=== PATIENT | female | born 1950 | race African-American/Black ===

== ENCOUNTER → 2017-02-01 | Outpatient (CLI) | payer MEDICARE, BC ==
--- NOTE | 2017-02-03 12:19 | WOMENS IMAGING REPORT ---
EXAM DESCRIPTION: 3D SCREENING MAMMO BILAT COMPLETED DATE/TIME: 02/01/2017 12:47 pm REASON FOR STUDY: ROUTINE SCREENING; Z12.31 Z12.31 ENCNTR SCREEN MAMMOGRAM FOR MALIGNANT NEOPLASM O F JERILYN COMPARISON: Multiple since 2014 TECHNIQUE: Standard craniocaudal and mediolateral oblique views of each breast recorded using digita l acquisition and breast tomosynthesis. LIMITATIONS: None. FINDINGS: No masses, calcifications or architectural distortion. No areas of suspicion. Read with the assistance of CAD. .[facility] - R2 Cenova Version 1.3 .[facility] - R2 Cenova Version 1.3 .[facility] - R2 Cenova Version 2.4 .[facility] [place] - R2 Cenova Version 2.4 .[facility] - R2 Spiral Winder Version 9.2 IMPRESSION: NORMAL MAMMOGRAM. BIRADS 1. BREAST DENSITY: b. There are scattered areas of fibroglandular density. BIRAD: 1 NEGATIVE RECOMMENDATION: ROUTINE SCREENING Please continue yearly bilateral screening tomosynthesis in January 2018 COMMENT: The patient has been notified of the results by letter per [place] requirements. Additional no tification policies are in place for contacting patient with suspicious or incomplete findings. Quality ID #[id number]: The [employer] recommends an annual screening mammogram for women aged 40 years or over. This facility utilizes a reminder system to ensure that all patients receive reminder letters, and/or direct phone calls for appointments. This includes reminders for routine scr eening mammograms, diagnostic mammograms, or other Breast Imaging Interventions when appropriate. Th is patient will be placed in the appropriate reminder system. The [employer] (A[employer]) has developed recommendations for screening MRI of the breast s in certain patient populations, to be used in conjunction with mammography. Breast MRI surveillanc e may be appropriate for women with more than 20% lifetime risk of developing breast cancer as deter mined by genetic testing, significant family history of the disease, or history of mantle radiation f or Hodgkins Disease. ACR Practice Guidelines 2008. DBT Technology DBT is a type of tomographic mammography. With conventional mammography, overlapping breast tissue ma y make lesions difficult to detect, even with good compression. DBT uses an x-ray tube that rotates a round the breast, taking images at different angles. These images are then combined to create thin sl ices of the breast that the radiologist can view as a 3D reconstruction. The [employer] unit can perform full-field digital mammograms (2D imaging); or DBT (3D imaging); or both, in a combination mode that quickly performs both the mammogram and the tomosynthesis scan while the breast is still compressed. PQRS 6045F: Fluoroscopic imaging is not utilized for breast tomosynthesis. TECHNICAL DOCUMENTATION: FINDING NUMBER: (1) ASSESSMENT: (1) JOB ID: [id number] [employer]- All Rights Reserved
== END ==
LOC: WI 11:52
PROVIDERS: ATTEND Specialist
DX: Z12.31 Encounter for screening mammogram for malignant neoplasm of breast (principal)
CPT/HCPCS: 77063; G0202; 77067

== ENCOUNTER 2019-07-08 16:19 | Emergency (ER) | payer MEDICARE, BC ==
--- NOTE | 2019-07-08 17:15 | ER Document Report ---
ED Medical Screen (RME) - General Chief Complaint: abnormal labs Stated Complaint: ABNORMAL LABS Time Seen by Provider: 07/08/19 17:09 Primary Care Provider: VEE SEGAL MD [Primary Care Provider] - Follow up as needed Notes: Patient is a 64-year-old female with a history of rheumatoid arthritis on Remicade and methotrexate who presents to the emergency department with a chief complaint of abnormal labs. Patient reports that she had blood work drawn by her primary care physician this morning was told to come to the emergency department for low hemoglobin. She reports her hemoglobin is 6.7 and her hemato crit is 23. Patient reports she has noticed increased shortness of breath over the past few weeks as well as fatigue. Patient reports she has been on iron since the and that her marshmallow maker took her off of this due to elevated iron levels. Patient reports he put her on B12 instead. TRAVEL OUTSIDE OF THE [place] IN LAST 30 DAYS: No - Related Data Allergies/Adverse Reactions: No Known Allergies Allergy (Unverified 07/08/19 17:09) Home Medications: hydrochlorothiazide, metformin, methotrexate, remicade, folic acid, aspirin, multivitamin, metoprolol, doxazosin, simvastatin, amlodipine- olmesartan Past Medical History - Social History Chew tobacco use (# tins/day): No Frequency of alcohol use: None Drug Abuse: None Physical Exam - Vital signs Vitals: Temp Pulse Resp BP Pulse Ox 98.5 F 103 H 18 144/83 H 98 07/08/19 16:25 07/08/19 16:25 07/08/19 16:25 07/08/19 16:25 07/08/19 16:25 - Skin Skin Temperature: Warm Skin Moisture: Dry Skin Color: Pale Course - Re-evaluation Re-evalutation: 07/08/19 17:15 I have greeted and performed a rapid initial assessment of this patient. A comprehensive ED assessment and evaluation of the patient, analysis of test results and completion of the medical decision making process will be conducted by additional ED providers. - Vital Signs Vital signs: Temp Pulse Resp BP Pulse Ox 98.5 F 103 H 18 144/83 H 98 07/08/19 16:25 07/08/19 16:25 07/08/19 16:25 07/08/19 16:25 01/06/20 16:25 Doctor's Discharge - Discharge Referrals: VEE SEGAL MD [Primary Care Provider] - Follow up as needed
[2019-07-08 17:53] LABS: ABSOLUTE EOSINOPHILS # (AUTO) 0.2 10^3/uL (0.0-0.6); ABSOLUTE LYMPHOCYTES (AUTO) 1.5 10^3/uL (0.5-4.7); ABSOLUTE MONOCYTES (AUTO) 0.8 10^3/uL (0.1-1.4); BASOPHILS % (AUTO) 0.7 % (0-2); EOSINOPHILS % (AUTO) 3.1 % (0-6); HEMATOCRIT 23.1 % (36.0-47.0); LYMPHOCYTES % (AUTO) 26.9 % (13-45); MEAN CORPUSCULAR HEMOGLOBIN 21.8 pg (27.0-33.4); MEAN CORPUSCULAR HGB CONC 30.1 g/dL (32.0-36.0); MEAN CORPUSCULAR VOLUME 72 fl (80-97); MONOCYTES % (AUTO) 14.6 % (3-13); PLATELET COUNT 238 10^3/uL (150-450); RED BLOOD COUNT 3.19 10^6/uL (3.72-5.28); RED CELL DISTRIBUTION WIDTH 20.7 % (11.5-14.0); SEGMENTED NEUTROPHILS % (AUTO) 54.7 % (42-78); TOTAL CELLS COUNTED % (AUTO) 100 %; WHITE BLOOD COUNT 5.5 10^3/uL (4.0-10.5)
[2019-07-08 17:55] LABS: HEMOGLOBIN 6.9 g/dL (12.0-15.5)
[2019-07-08] MEDS ORDERED: NORMAL SALINE 250 ML IV PRN (18:02)
[2019-07-08 18:10] LABS: ALBUMIN 3.8 g/dL (3.5-5.0); ALKALINE PHOSPHATASE 93 U/L (38-126); ANION GAP 8 (5-19); ASPARTATE AMINO TRANSFERASE 24 U/L (14-36); BILIRUBIN,DIRECT 0.2 mg/dL (0.0-0.4); BILIRUBIN,TOTAL 0.3 mg/dL (0.2-1.3); BLOOD UREA NITROGEN 21 mg/dL (7-20); CALCIUM 9.3 mg/dL (8.4-10.2); CARBON DIOXIDE 27 mmol/L (22-30); CHLORIDE 104 mmol/L (98-107); GLUCOSE 183 mg/dL (75-110); POTASSIUM 3.8 mmol/L (3.6-5.0); TOTAL PROTEIN 6.9 g/dL (6.3-8.2)
--- NOTE | 2019-07-08 23:29 | ER Document Report ---
ED General - General Chief Complaint: Abnormal Lab Results Stated Complaint: ABNORMAL LABS Time Seen by Provider: 07/08/19 17:09 Primary Care Provider: VEE SEGAL MD [EMERITUS] - Follow up as needed TRAVEL OUTSIDE OF THE [place] IN LAST 30 DAYS: No - HPI Patient complains to provider of: low iron Onset: This morning Onset/Duration: Gradual Severity: Mild Pain Level: 0 Context: 69 year old female with RA and heart disease was called from her rheumatologists office this pm due to "low iron." It was 6.7 or so. No abd pain and no chest pain or sob. She has been tired. Denies bloody, black or tarry stool. No rash. Exacerbated by: Denies Relieved by: Denies - Related Data Allergies/Adverse Reactions: No Known Allergies Allergy (Unverified 07/08/19 17:09) Home Medications: hydrochlorothiazide, metformin, methotrexate, remicade, folic acid, aspirin, multivitamin, metoprolol, doxazosin, simvastatin, amlodipine- olmesartan Past Medical History - Social History Smoking Status: Never Smoker Chew tobacco use (# tins/day): No Frequency of alcohol use: None Drug Abuse: None Family History: Reviewed & Not Pertinent Patient has suicidal ideation: No Patient has homicidal ideation: No Review of Systems - Review of Systems Constitutional: No symptoms reported EENT: No symptoms reported Cardiovascular: No symptoms reported Respiratory: No symptoms reported Gastrointestinal: No symptoms reported Genitourinary: No symptoms reported Female Genitourinary: No symptoms reported Musculoskeletal: No symptoms reported Skin: No symptoms reported Hematologic/Lymphatic: No symptoms reported Neurological/Psychological: No symptoms reported Physical Exam - Vital signs Vitals: Temp Pulse Resp BP Pulse Ox 98.5 F 103 H 18 144/83 H 98 07/08/19 16:25 07/08/19 16:25 07/08/19 16:25 07/08/19 16:25 07/08/19 16:25 Interpretation: Normal - General General appearance: Appears well, Alert - HEENT Head: Normocephalic, Atraumatic Eyes: Normal Conjunctiva: Other - pale Pupils: PERRL - Respiratory Respiratory status: No respiratory distress Chest status: Nontender Breath sounds: Normal Chest palpation: Normal - Cardiovascular Rhythm: Regular Heart sounds: Normal auscultation Murmur: No - Abdominal Inspection: Normal Distension: No distension Bowel sounds: Normal Tenderness: Nontender Organomegaly: No organomegaly - Back Back: Normal, Nontender - Extremities General upper extremity: Normal inspection, Nontender, Normal color, Normal ROM, Normal temperature General lower extremity: Normal inspection, Nontender, Normal color, Normal ROM, Normal temperature, Normal weight bearing. No: Matty's sign - Neurological Neuro grossly intact: Yes Cognition: Normal Orientation: AAOx4 Silas Coma Scale Eye Opening: Spontaneous Silas Coma Scale Verbal: Oriented Silas Coma Scale Motor: Obeys Commands Silas Coma Scale Total: 15 Speech: Normal Motor strength normal: LUE, RUE, LLE, RLE Sensory: Normal - Psychological Associated symptoms: Normal affect, Normal mood - Skin Skin Temperature: Warm Skin Moisture: Dry Skin Color: Normal Course - Re-evaluation Re-evalutation: 07/08/19 23:55 MDM 69 year old female with symtomatic anemia is being transfused 2 units here and to follow up with PCP. We discussed resuming iron therapy and she expressed understanding. - Vital Signs Vital signs: Temp Pulse Resp BP Pulse Ox 98.3 F 67 18 153/90 H 100 07/09/19 02:08 07/09/19 02:08 07/09/19 02:10 07/09/19 02:10 07/09/19 02:10 - Laboratory Result Diagrams: 07/08/19 17:30 07/08/19 17:30 Laboratory results interpreted by me: 07/08/19 07/08/19 07/08/19 17:30 17:30 17:30 RBC 3.19 L Hgb 6.9 L Hct 23.1 L MCV 72 L MCH 21.8 L MCHC 30.1 L RDW 20.7 H [place] % (Auto) 14.6 H BUN 21 H Glucose 183 H Crossmatch See Detail Discharge - Discharge Clinical Impression: Anemia Qualifiers: Anemia type: unspecified type Qualified Code(s): D64.9 - Anemia, unspecified Condition: Good Disposition: HOME, SELF-CARE Instructions: Anemia ([facility]), Anemia, Iron Deficiency ([facility]) Additional Instructions: See your doctor in follow up. Rest. Take your medicine as directed. Return here for any problems or concerns including but not limited to chest pain, shortness of breath or bleeding from your rectum or vomiting blood. Prescriptions: Iron,Carbonyl [Iron Chews] 15 mg PO DAILY #30 tab.chew Referrals: VEE SEGAL MD [EMERITUS] - Follow up as needed
[2019-07-09 02:12] VITALS: BP 153/90
== END 2019-07-09 02:45 | disposition home or self-care (01) ==
LOC: ER 16:19
DX: D64.9 Anemia, unspecified (principal); M06.9 Rheumatoid arthritis, unspecified; Z79.899 Other long term (current) drug therapy; Z79.82 Long term (current) use of aspirin; Z79.84 Long term (current) use of oral hypoglycemic drugs
CPT/HCPCS: 99283; 96360; 96361; 86900; 86901; 36415; 36430; 86850; 85025; 80053; 86920; P9016; J7050